=== PATIENT | male | born 1945 | race Caucasian/White ===

== ENCOUNTER → 2019-07-18 15:34 | Outpatient (CLI) | payer MEDICARE, SELFPAY ==
--- NOTE | 2019-07-18 15:36 | DI.RAD.S_ITS ---
PROCEDURE: XR FOOT LT MIN 3V INDICATIONS: left heel pain TECHNIQUE: 3 views of the foot were acquired. COMPARISON: None. FINDINGS: Bones: No fractures or dislocations. There is a small plantar calcaneal enthesophyte with associated minimal linear soft tissue calcifications at the origin of the plantar fascia. A bipartite medial sesamoid is noted. No suspicious bony lesions. Soft tissues: No tibiotalar joint effusion. Achilles tendon appears normal. IMPRESSION: 1. Small plantar calcaneal enthesophyte with minimal associated linear soft tissue calcifications may reflect sequelae of plantar fasciitis. 2. No fracture or dislocation. Dictated by: Amandeep Diaz M.D. on 07/18/2019 at 16:26 Approved by: Amandeep Diaz M.D. on 07/18/2019 at 16:27
== END ==
PROVIDERS: Family Provider Family Medicine; PCP Family Medicine; Visit Provider Physician Assistant
DX: M79.672 Pain in left foot (principal)
CPT/HCPCS: 73630

== ENCOUNTER → 2023-08-02 10:24 | Outpatient (CLI) | payer MEDICARE, SELFPAY ==
--- NOTE | 2023-08-02 | DI.RAD.S_ITS ---
PROCEDURE: FL BARIUM SWALLOW W SPEECH INDICATIONS: Dysphagia, unspecified COMPARISON: None. TECHNIQUE: Examination was conducted in conjunction with speech pathology per standard protocol. In the lateral projection, filming was performed of the patient swallowing. AP projection filming may also be performed with patient swallowing. COMPARISON: FINDINGS: Function: The oral preparatory phase appears normal, with proper containment. The subsequent oral propulsive phase, pharyngeal phase, and esophageal phase of swallowing also appear normal with all proffered substances. No laryngotracheal penetration or aspiration. No pathologic vallecular pooling. Morphology: No cricopharyngeal bar is present. No cervical esophageal webs. No Zenker's diverticulum. No strictures. Prominent marginal osteophyte at C6-7. IMPRESSION: No penetration or aspiration. Dictated by: Cristhian Juárez M.D. on 08/02/2023 at 12:09 Approved by: Cristhian Juárez M.D. on 08/02/2023 at 12:09
--- NOTE | 2023-08-03 15:13 | ST.SWALLOW ---
Visit Care Team Role Provider Type Christiano Toscano DO Family Provider Non-Staff Primary Care Provider Specialty: Family Practice Address: [address] [place] [address], [id number] Email: Cruzito Erickson PA-C Attending Provider Non-Staff Referring Provider Specialty: Medical Address: [address] [place] [address], [id number] Email: Modified Barium Swallow Study [employer] Modified Barium Swallow Study Start: 08/02/23 13:01 Freq: Status: Active Protocol: Document 08/02/23 13:01 CG (Rec: 08/02/23 13:15 CG [id number]) Modified Barium Swallow Study Total Time Visit Start Time 10:35 Visit Stop Time 11:10 Total Visit Minutes 35 Visit Information Visit Number 1 Referral Referring Physician Cruzito Erickson PA-C Reason for Referral dysphagia unspecified Setting Setting Outpatient Care Patient Information Identification Type Name Patient History Ritesh Linares is a 78-year- old male referred for an MBSS by his primary care physician due to compliants of difficulty swallowing. Limited history is available in pt's chart outside of family practice visit in 2019 for plantar fasciitis, and pt did not provide extensive medical history. Of relevance for this study, the pt reports that he has never smoked, does not drink alcohol , and does not drink coffee. He reported that he had been hospitalized within the last 5 -10 years, but that this has not been due to a condition he felt would effect his swallowing. He does endorse a history of GERD, and states that his PCP recommended an over the counter medication ( pt does not remember specific medication), but that he had not started taking it as he was taking multiple medications at the time and was concerned about drug interactions. He states that he is not currently working with a GI. He reports that he is concerned that he may need to have a balloon procedure (esophageal dilation) performed, as he has had multiple family members who needed to undergo this procedure. The cath lab radiology technician did find previous imaging of the pt's neck within EMR, which revealed prominent C6-C7 osteophytes projecting into the esophagus. During pt interview, the pt states that he sometimes feels as though food gets stuck, especially larger, harder foods. He is self-modifying his diet at home, including grinding up pasta to small pieces. When asked where he feels the food get stuck, the pt pointed to his sternal notch. He usually does not have difficulty with liquids, but reports that there have been occasions when the liquid comes back up. When asked what strategies he uses to resolve the feeling of food being stuck, the pt states that the only way to fix it is to drink a carbonated beverage that will cause him to burp and release the feeling of pressure. He stated that he does have some difficulty chewing occasionally, though he has all of his own teeth apart from one dental implant. Due to chewing difficulty, he states that he usually only chew on the right side of his mouth. Subjective Observations Pt independently ambulated to radiology suite. He was alert , oriented, and able to follow directions. Speech pattern was clear and intelligible, and all oral structures and function appeared adequate for speech and swallowing. Patient Positioning Position View Lat-A/P Imaging Lateral View Textures Administered Trials Presented Thin Liquid via Spoon (IDDSI 0 ),Thin Liquid via Cup (IDDSI 0 ),Mildly Thick Liquid via Spoon (IDDSI 2),Mildly Thick Liquid via Cup (IDDSI 2), Extremely Thick Liquid via Spoon (IDDSI 4),Regular (IDDSI 7) Barium Tablet Yes The IDDSI Framework Protocol: IDDSI.1 Oral Impairment Source: The Modified Barium Swallow Impairment Profile (MBSImP??) Lip Closure No labial escape Tongue Control During Bolus Hold Escape to lateral buccal cavity/floor of mouth (FOM) Bolus Preparation/Mastication Timely & efficient chewing & mashing Bolus Transport/Lingual Motion Brisk tongue motion Oral Residue Residue collection on oral structures Location Palate,Tongue Initiation of Pharyngeal Swallow Bolus head at posterior laryngeal surface of epiglottis Additional Oral Impairment Observations Oral phase was characterized by physiology mostly WFL, but with delayed swallow initiation on approximately 50 % of trials. Additionally, oral residue was present across oral structures following swallows of liquid consistencies. Pharyngeal Impairment Source: The Modified Barium Swallow Impairment Profile (MBSImP??) Soft Palate Elevation No bolus between soft palate & pharyngeal wall Laryngeal Elevation Comp.sup.move.thyroid cart.w/ comp.approx.arytenoids to epiglot petiole Anterior Hyoid Excursion Partial anterior movement Epiglottic Movement Complete inversion Laryngeal Vestibular Closure Complete; no air/contrast in laryngeal vestibule Pharyngeal Stripping Wave Present - diminished Pharyngoesophageal Segment Opening Complete distention & complete duration; no obstruction of flow Tongue Base Retraction Trace column of contrast/air betwn tongue base & post. pharyngeal wall Pharyngeal Residue Collection of residue within/ on pharyngeal structures Location Diffuse (>3 areas) Additional Pharyngeal Impairment In lateral view, brief Observations instances of retrograde flow of small amounts of bolus can be observed in the region of pt's prominent osteophyte at C6. Though the PES does appear to open completely during the swallow, there is retrograde flow of the bolus back through the PES after the swallow, possibly due to impedement of tissue surrounding C6 osteophyte. A/P View The IDDSI Framework Protocol: IDDSI.1 A/P View Observations Esophageal Clearance Upright Position Esophageal retention Esophageal Function Slowed Clearing Additional A-P Observations Esophageal retention of previous trials of barium was observed in the lower third of the esophagus upon AP viewing . During A/P view, trial of barium tablet was administered (carried by water). Movement of the tablet through the esophagus and into the stomach appeared timely. Clinical Impressions Dysphagia Type Esophageal Findings Based on pt's symptoms (globus sensation near sternal notch, needing to burp to relieve pressure, feeling of fullness across chest after eating) in addition to objective observations from this study ( esophageal retention, retrograde flow), the pt's symptoms are likely the result of esophageal concerns. Globus sensation may be related to esophageal retention, though there is a possibility that residue is being felt in the region superior to the osteophyte protrusion into the pt's esophagus. There were some instances of mild impairment of the pharyngeal swallow physiology, but the pt's oral and pharyngeal phases were largely intact. No instances of penetration or aspiration were observed, and pt does not present as a significant aspiration risk at this time based on overall health status (cognitive, mobility, independence with oral care). Given this information, recommend referral to GI and consider esophageal imaging to further assess esophageal function. Patient Appropriate for Therapy No Recommendations Diet Liquids Order Thin (IDDSI 0) Diet Order Easy to Chew (IDDSI 7) Medication Recommendation As Tolerated Aspiration Precautions Recommended Precautions Upright at 90 Degrees, Alternate Liquids/Solids, Frequent Rest Periods,Small Bites/Sips Additional Precautions GERD/Esophageal precautions Treatment Plan Recommended Referrals GI Consult Therapy Strategy Recommendations Sitting Upright (90 deg),Small Bites and Sips,Alternate Liquids/Solids Additional Strategies Recommended GERD/Esophageal precautions Placement Recommendation After Discharge Home
== END ==
PROVIDERS: Family Provider Family Medicine; PCP Family Medicine; Referring Provider Student in an Organized Health Care Education/Training Program; Visit Provider Student in an Organized Health Care Education/Training Program
DX: R13.10 Dysphagia, unspecified (principal)
CPT/HCPCS: 74230; 92611

== ENCOUNTER → 2024-07-28 10:18 | Outpatient (CLI) | payer MEDICARE, SELFPAY ==
--- NOTE | 2024-07-28 10:19 | DI.MRI.S_ITS ---
PROCEDURE: MR ANKLE RT WO CON INDICATIONS: RIGHT ANKLE PAIN TECHNIQUE: Noncontrast sagittal T1 spin echo and T2 fast spin echo with fat saturation, axial proton density fast spin echo and T2 fast spin echo with fat saturation, coronal T1 spin echo and T2 fast spin echo with fat saturation through the ankle/hindfoot. COMPARISON: None. FINDINGS: Image quality: Excellent Tendons: Mild tenosynovitis of the posterior tibialis and the flexor digitorum longus tendon. The extensor tendons are unremarkable. No tear of the peroneal tendons. Mild tenosynovitis of the peroneal longus at the level of the cuboid. Mild tendinosis of the distal Achilles tendon, without tear. Ligaments: The anterior and the posterior tibiofibular ligament are intact. The anterior and the posterior talofibular ligament are intact. The calcaneofibular ligament is intact. Mild sprain of the deep portion of the deltoid ligament. 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 Plantar fascia: Thickening of the central cord, concerning for plantar fasciitis. Muscle: Normal in signal Bones: 3 mm subchondral marrow edema in the lateral talus dome, likely representing a small osteochondral lesion. Moderate subchondral cystic changes with marrow edema about the middle subtalar joints, degenerative. The posterior subtalar joint is unremarkable. Mild degenerative changes of the 2nd tarsometatarsal joint with associated subchondral cystic changes. Type 2 os navicularis with mild degenerative changes about its navicular articulation. Plantar calcaneal enthesophyte. No significant tibiotalar or posterior subtalar effusion. IMPRESSION: 1. Mild tenosynovitis of the flexor and the peroneal tendons. 2. 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 3. Findings concerning for plantar fasciitis. 4. 3 mm osteochondral lesion in the lateral talus dome. 5. Additional mild degenerative changes in midfoot. Dictated by: Shivani Arrington M.D. on 07/30/2024 at 11:45 Approved by: Shivani Arrington M.D. on 07/30/2024 at 12:03
== END ==
PROVIDERS: Family Provider Family Medicine; PCP Family Medicine; Referring Provider Orthopaedic Surgery Foot and Ankle Surgery; Visit Provider Orthopaedic Surgery Foot and Ankle Surgery
DX: M65.871 Other synovitis and tenosynovitis, right ankle and foot (principal); M25.571 Pain in right ankle and joints of right foot; S93.421A Sprain of deltoid ligament of right ankle, initial encounter; M93.271 Osteochondritis dissecans, right ankle and joints of right foot; M77.31 Calcaneal spur, right foot
CPT/HCPCS: 73721

== ENCOUNTER → 2024-08-09 08:48 | Outpatient (CLI) | payer MEDICARE, SELFPAY ==
--- NOTE | 2024-08-09 08:49 | DI.ECHO.S_ITS ---
[facility] +---------+ [facility] : : [address] : : [place] : : [id number] : : Phone: [phone] Echocardiogram Report + + :Name: GILBERTO GUERIN Study Date: 08/09/2024 Height: 70 in : :Hospital ReadingLocation: Weight: 192 lb : : Gender: Male BSA: 2.1 m2 : :: 1945 Age: 79 yrs BP: 141/85 mmHg: :Reason For Study: UNSTABLE ANGINA : :Ordering Physician: NATANAEL, : :NICHOLAS Performed By: Naty Rai : :Referring: NICHOLAS SANTOYO : + + Interpretation Summary The ejection fraction is estimated to be 40-45%. Left ventricular function has moderately worsened compared to the previous exam. Septal and inferior hypokinesis There is mild aortic regurgitation. Procedure: A two-dimensional transthoracic echocardiogram with color flow and Doppler was performed. The study quality was technically adequate. Comparison is made with the echocardiogram of 06/06/2022. The patient was in sinus bradycardia with heart rates between 58-76 bpm during the exam. Left Ventricle: The left ventricle is normal in size and wall thickness. The ejection fraction is estimated to be 40-45%. Left ventricular function has moderately worsened compared to the previous exam. Septal and inferior hypokinesis. Right Ventricle: The right ventricle is normal in size and function. Atria: The left atrial size is normal. Right atrial size is normal. There is no Doppler evidence for an interatrial shunt. Mitral Valve: The mitral valve is normal in structure and function. There is trace mitral regurgitation. Aortic Valve: The aortic valve is trileaflet. The aortic valve is slightly calcified. There is no aortic valve stenosis. There is mild aortic regurgitation. Tricuspid Valve: The tricuspid valve is normal in structure and function. There is trace tricuspid regurgitation. Pulmonary artery pressures cannot be estimated because of the lack of a measurable TR jet velocity. Pulmonic Valve: The pulmonic valve leaflets are thin and pliable; valve motion is normal. There is mild pulmonic regurgitation. Great Vessels: The aortic root is mildly dilated. The ascending aorta is at the upper limits of normal in size. The inferior vena cava was not well visualized. Pericardium/ Pleura There is no pericardial effusion. There is no pleural effusion. MMode/2D Measurements & Calculations LVIDd: 5.6 cm LVOT diam: 2.0 cm LVIDs: 4.1 cm Ao root diam: 4.1 cm FS: 26.6 % asc Aorta Diam: 3.9 cm IVSd: 1.1 cm Ao Arch Diam (Prox Trans): 3.2 cm LVPWd: 0.85 cm LV anderson. diameter/BSA (cm/m^2): 2.7 LV sys. diameter/BSA (cm/m^2): 2.0 LA A2 area: 18.5 cm2 RA long axis: 5.1 cm LA A4 area: 17.9 cm2 RA area: 16.5 cm2 LA length (vol): 5.3 cm RA vol: 45.6 ml LA vol: 53.2 ml RA : 22.2 ml/m2 LA vol index: 25.9 ml/m2 RVD1 (basal): 3.3 cm RVD2 (mid): 2.2 cm TAPSE: 2.0 cm Doppler Measurements & Calculations Ao V2 max: 129.4 cm/sec LVOT Max Esteban: 100.6 cm/sec Ao V2 mean: 93.9 cm/sec LV V1 max P.0 mmHg Ao max P.7 mmHg LV V1 VTI: 18.3 cm Ao mean P.8 mmHg ERASMO(I,D): 2.2 cm2 Ao V2 VTI: 26.4 cm ERASMO(V,D): 2.5 cm2 sev ratio: 0.69 ERASMO indexed to BSA (cm^2/m^2): 1.1 MV E max esteban: 50.1 cm/sec PA V2 max: 121.3 cm/sec MV A max esteban: 111.3 cm/sec PA V2 mean: 83.7 cm/sec MV E/A: 0.45 PA mean P.1 mmHg Med Peak E' Esteban: 4.5 cm/sec PA pr(Accel): 31.0 mmHg E/E' med: 11.3 Lat Peak E' Esteban: 6.6 cm/sec E/E' lat: 7.6 E/e' average: 9.4 MV dec time: 0.30 sec SV(LVOT): 59.4 ml Reading Physician:01:57 PM
== END ==
LOC: ECHO 08:49
PROVIDERS: Family Provider Family Medicine; PCP Family Medicine; Referring Provider Student in an Organized Health Care Education/Training Program; Visit Provider Student in an Organized Health Care Education/Training Program
DX: I20.0 Unstable angina (principal); I35.1 Nonrheumatic aortic (valve) insufficiency; I37.1 Nonrheumatic pulmonary valve insufficiency; I77.810 Thoracic aortic ectasia
CPT/HCPCS: 93306